=== PATIENT | male | born 1950 | race Caucasian/White ===

== ENCOUNTER → 2017-06-30 | Outpatient (CLI) | payer MEDICARE, OTHER ==
[~2017-06-30] MED LIST: AMLODIPINE BESY10 MG PO; ASPIRIN81 M1 PO; AUGMENTIN 875875 MG PO; B121000 MCG/1 IM; CALCIUM W/VITAM1 TAB PO; CLEOCIN HCL150 MG PO; CLOPIDOGREL75 MG PO; COZAAR100 MG PO; DOXAZOSIN4 MG PO; FAMOTIDINE20 M1 PO; FISH OIL1000 MG PO; GABAPENTIN300 M1 PO; GLIMEPIRIDE4 M1 PO; HYDROCODONE BIT1 T11 PO; INVOKANA100 M1 PO; IRON90 MG PO; LANTUS100 U/ML SC; LOFIBRA200 MG PO; LYRICA100 M1 PO; Lovenox40 MG/0.4 SC; MEN'S MULTI-VI1 EACH PO; METFORMIN1000 MG PO; METOPROLOL SUC100 M1 PO; NORVASC5 MG PO; PRILOSEC20 M1 PO; SERTRALINE100 MG PO; SYNTHROID,LEV175 MCG PO; SYNTHROID0.137 MG PO; TEMOVATE0.05% T; TOPROL XL25 MG PO; [UNRECOGNIZED DRUG - SUPPLY]
== END | disposition home or self-care (01) ==
LOC: RAD 12:43
DX: J90 Pleural effusion, not elsewhere classified (principal); R91.8 Other nonspecific abnormal finding of lung field; E11.9 Type 2 diabetes mellitus without complications; I10 Essential (primary) hypertension; Z87.891 Personal history of nicotine dependence

== ENCOUNTER → 2023-06-23 | Outpatient (CLI) | payer MEDICARE, OTHER | END | disposition home or self-care (01) | LOC: RESCLI 15:21 | PROVIDERS: ATTEND Student in an Organized Health Care Education/Training Program | DX: E03.9 Hypothyroidism, unspecified (principal); E11.9 Type 2 diabetes mellitus without complications; E78.5 Hyperlipidemia, unspecified; F32.9 Major depressive disorder, single episode, unspecified; I50.9 Heart failure, unspecified; E11.40 Type 2 diabetes mellitus with diabetic neuropathy, unspecified; G47.33 Obstructive sleep apnea (adult) (pediatric); Z95.0 Presence of cardiac pacemaker; Z88.5 Allergy status to narcotic agent; Z88.8 Allergy status to other drugs, medicaments and biological substances; Z79.84 Long term (current) use of oral hypoglycemic drugs; Z79.4 Long term (current) use of insulin; Z79.899 Other long term (current) drug therapy ==

== ENCOUNTER → 2023-12-08 | Outpatient (CLI) | payer MEDICARE, OTHER ==
[2023-12-08 13:05] LABS: MEAN CELL VOLUME 86.5 fl (80.0-94.0); MEAN CORPUSCULAR HGB 28.4 pg (27.0-31.0); MEAN CORPUSCULAR HGB CONC 32.8 g/dl (33.0-37.0); MEAN PLATELET VOLUME 10.4 fl (9.6-12.3); PLATELET COUNT AUTOMATED 143 10*3/uL (130-400); RED BLOOD COUNT 4.51 10*6/uL (4.50-5.90); WHITE BLOOD COUNT 3.7 10*3/uL (4.8-10.8)
[2023-12-08 13:07] LABS: MANUAL DIFF REFLEX YES
[2023-12-08 13:18] LABS: BASOPHILS 1 % (0-1); BURR CELLS FEW; OVALOCYTES FEW; PLATELET SUFFICIENCY NORMAL (NORMAL); POLYCHROMASIA SLIGHT; TOTAL CELLS COUNTED 100 #CELLS
[2023-12-08 13:21] LABS: BUN 6 mg/dl (9-23); CHLORIDE 107 mmol/L (98-107)
== END | disposition home or self-care (01) ==
LOC: LAB 12:39
PROVIDERS: ATTEND Internal Medicine
DX: R10.0 Acute abdomen (principal); E86.0 Dehydration; R42 Dizziness and giddiness